=== PATIENT | male | born 1975 | race Caucasian/White ===

== ENCOUNTER 2018-06-09 20:52 | Emergency (ER) | payer SELFPAY ==
[2018-06-09] MEDS ORDERED: Proparacaine 0.5% Ophth Soln 15 ML Bottle EYERT ONE (21:10)
[2018-06-09] MEDS ORDERED: Fluorescein 0.6 MG Ophth Strip EYERT ONE (21:10)
--- NOTE | 2018-06-09 21:40 | EDM.PDOC ---
ED HPI GENERAL MEDICAL PROBLEM - General Chief Complaint: Eye Problems Stated Complaint: RIGHT EYE IRRATATED SOMETHING IN IT POSSIBLE Time Seen by Provider: 06/09/18 21:35 Source of Information: Reports: Patient History Limitations: Reports: No Limitations - History of Present Illness INITIAL COMMENTS - FREE TEXT/NARRATIVE: Patient is a 42 y/o male who presents to the E.D. complaining of right eye pain. States it feels as if something is in his right eye. This has been bothering him all day. Patient works in the oil field and wears safety glasses. States there is a lot of dust at his work site. Patient does not wear contacts anymore since in the past has experienced ulcerations to the cornea 2nd to extended contact use. Patient since onset of irritation has been rubbing his eyes with his palm. Complains of slight blurriness to the eye at times. Currently has a mild cold and has been experiencing increased sinus congestion with runny nose. Denies fever/chills, n/v, headache pain with eom's, or any additional complaints. Right Eye Pain Score (Numeric/FACES): 6 - Related Data Allergies Allergy/AdvReac Type Severity Reaction Status Date / Time acetaminophen [From Tylenol] Allergy Swelling Verified 06/09/18 21:16 Home Meds: Home Meds Erythromycin Base [Erythromycin 0.5% Ophth Oint] 1 applic EARRT Q4H #3.5 gm [Rx] ED ROS GENERAL - Review of Systems Review Of Systems: See Below Constitutional: Denies: Fever HEENT: Reports: Eye Discharge (Excessive tearing), Eye Pain (Right). Denies: Vision Change Neurological: Denies: Headache ED EXAM GENERAL W FULL EYE - Physical Exam Exam: See Below Exam Limited By: No Limitations General Appearance: Alert, WD/WN, No Apparent Distress Eye Exam: Right Eye: Conjunctival Injection, Corneal Abrasion (6 to 7 o'clock position of the lower border of the right cornea.), Foreign Body (Small speck of dust to the midportion of the right cornea. Removed with Q-tip.), Proptosis ( None noted), Vision Changes (Blurred at times per patient), Bilateral Eye: EOMI , PERRL IOP Measure with (Equipment): Tonopen (9 right 9 left) Eyelids: Right: Normal Appearance (Upper lid is mildly swollen), Erythema ( Faint redness along the border.), Foreign Body (Small amount of dust to the central aspect of the right cornea removed with a Q-tip.), Infraorbital Anesthesia, Lid Everted for Exam Conjunctiva & Sclera: Right: Injected Cornea Exam: Right: Corneal Abrasion (To the 6 to 7 o'clock position of the lower part of the right cornea.), Examined with Flourescein Extraocular Movements: Bilateral: Intact Pupillary Size: Bilateral: 4 mm Pupillary Reaction: Bilateral: Brisk Ears: Hearing Grossly Normal Nose: Normal Inspection Throat/Mouth: Normal Voice, No Airway Compromise Neck: Normal Inspection, Supple Respiratory/Chest: No Respiratory Distress, No Accessory Muscle Use Neurological: Alert, Oriented, CN II-XII Intact, Normal Cognition, No Motor/ Sensory Deficits Psychiatric: Normal Affect, Normal Mood Skin Exam: Warm, Dry, Intact, Normal Color Course - Vital Signs Last Recorded V/S: Last Vital Signs Temp 97.5 F 06/09/18 21:03 Pulse 78 06/09/18 21:03 Resp 20 06/09/18 21:03 BP 124/77 06/09/18 21:03 Pulse Ox 99 06/09/18 21:03 - Re-Assessments/Exams Free Text/Narrative Re-Assessment/Exam: Patient examined under slit lamp with fluorescein stain. Small particulate dusts gravel removed in the central portion of the right cornea. There is a small area of uptake of fluorescein stain to the 6 to 7 o'clock position. Intraocular pressures are 9 for both right and left. I have ordered erythromycin ointment to be applied to the right thigh. Patient will be discharged home with a prescription for erythromycin ointment. Discharge instructions as documented. The patient remained hemodynamically stable while under my care in the E.D. I discussed the concerning symptoms for which to returnto the E.D. with the patient/family. The patient/family verbalized understanding. All questions were answered. Departure - Departure Time of Disposition: 21:48 Disposition: Home, Self-Care 01 Condition: Good Clinical Impression: Corneal abrasion Qualifiers: Encounter type: initial encounter Laterality: right Qualified Code(s): S05.01XA - Injury of conjunctiva and corneal abrasion without foreign body, right eye, initial encounter - Discharge Information Prescriptions: Erythromycin Base [Erythromycin 0.5% Ophth Oint] 1 applic EARRT Q4H #3.5 gm Instructions: Corneal Abrasion Referrals: PCP,None [Primary Care Provider] - Additional Instructions: Apply erythromycin opthalmic ointment 1 cm ribbon to the right eye every 6hrs for 7 days. Take ibuprofen 600mg every 6 hrs for pain. Do not rub your eyes and or use contacts. See your eye doctor in the next 2 days for reevaluation to ensure improvement. Return to the E.D. if you develop any new or worsening symptoms.
[2018-06-09] MEDS ORDERED: Erythromycin Base 0.5% Ophth Oint 1 GM Tube EYERT ONE (21:45)
== END 2018-06-09 22:16 | disposition home or self-care (01) ==
LOC: JD.ED 20:52
DX: T15.01XA Foreign body in cornea, right eye, initial encounter (principal); Z88.6 Allergy status to analgesic agent
CPT/HCPCS: 65222; 99283; A9270